=== PATIENT | male | born 2000 | race Caucasian/White ===

== ENCOUNTER 2024-04-05 18:53 | Inpatient (IN) ==
[2024-04-05 20:19] LABS: Basophils # (auto) 0.02 K/uL (0.00-0.20); Basophils % (auto) 0.2 %; Eosinophils # (auto) 0.16 K/uL (0.00-0.50); Eosinophils % (auto) 1.7 %; Hematocrit (blood only) 36.3 % (42.0-52.0); Hemoglobin 12.5 g/dl (14.0-18.0); Immature Granulocytes # (auto) 0.03 K/uL (0.01-0.20); Immature Granulocytes % (auto) 0.3 %; Lymphocytes # (auto) 1.26 K/uL (1.20-3.40); Lymphocytes % (auto) 13.1 %; Mean Corpuscular Hemoglobin 29.4 pg (25.0-34.0); Mean Corpuscular Hgb Conc 34.4 g/dL (32.0-36.0); Mean Corpuscular Volume 85.4 fL (80.0-100.0); Monocytes # (auto) 0.61 K/uL (0.11-0.59); Monocytes % (auto) 6.3 %; Neutrophils # (auto) 7.57 K/uL (1.40-6.50); Neutrophils % (auto) 78.4 %; Platelet Count 147 K/uL (130-400); RDW Coefficient of Variation 12.9 % (11.5-14.5); RDW Standard Deviation 39.3 fL (36.4-46.3); Red Blood Count 4.25 M/uL (4.70-6.10); White Blood Count 9.65 K/ul (4.8-10.8)
[2024-04-05 20:34] LABS: Alanine Aminotransferase 19 U/L (7-52); Albumin Globulin Ratio 1.6 (0.9-2); Albumin Level 4.1 gm/dl (3.4-5.0); Alkaline Phosphatase 65 U/L (34-104); Anion Gap 6 (3-11); Aspartate Aminotransferase 19 U/L (13-39); BUN Creatinine Ratio 11.8 (10-20); Bilirubin,Total 0.8 mg/dl (0.2-1.0); Blood Urea Nitrogen 11 mg/dl (6-23); Calcium 9.1 mg/dl (8.6-10.3); Carbon Dioxide 26 mmol/L (21-32); Chloride 102 mmol/L (98-107); Globulin 2.5 gm/dl (2.5-4.0); Glucose 171 mg/dl (70-99(Fasting)); Potassium 3.5 mmol/L (3.5-5.1); Sodium 134 mmol/L (136-145); Total Protein 6.6 gm/dl (6.0-8.3)
[2024-04-05 20:41] LABS: Acetaminophen < 3 ug/ml (10-30); Salicylate < 3.0 mg/dl (3.0-30)
[2024-04-05 20:48] LABS: Thyroid Stimulating Hormone 0.229 uIu/ml (0.300-4.500)
[2024-04-05 21:42] LABS: Appearance Urine Clear (Clear); Bilirubin Urine Negative (Negative); Blood Urine Negative (Negative); Color Urine Yellow; Glucose Urine UA Negative (Negative); Ketones Urine Negative (Negative); Leukocyte Esterase Urine Negative (Negative); Nitrite Urine Negative (Negative); Protein Urine Negative (Negative); Specific Gravity Urine 1.005 (1.000-1.030); Urobilinogen Urine Negative (Negative)
[2024-04-05 22:07] LABS: Amphetamines+Metham, Urine Pos (Neg); Barbiturates, Urine Neg (Neg); Benzodiazepine, Urine Neg (Neg); Cocaine, Urine Neg (Neg); Fentanyl, Urine Pos (Neg); MDMA (Ecstacy), Urine Neg (Neg); Marijuana, Urine Pos (Neg); Methadone, Urine Neg (Neg); Opiate, Urine Neg (Neg); Phencyclidine, Urine Neg (Neg)
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
[2024-04-06] MEDS ORDERED: ACETAMINOPHEN 325 MG TAB PO PRN (04:38)
[2024-04-06] MEDS ORDERED: POLYETHYLENE (MIRALAX) 17 GM PACK PO PRN (04:38)
[2024-04-06] MEDS: ENOXAPARIN INJ 40 MG/0.4 ML SYR SQ SCH (08:50)
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
--- NOTE | 2024-04-06 11:30 | Orthopedic Consultation ---
Date of Consultation April 06, 2024 Assessment & Plan (1) Bimalleolar ankle fracture: Patient has a bimalleolar displaced ankle fracture requiring surgical intervention. He is scheduled for an open reduction internal fixation of the right ankle tomorrow with Dr. Mixon. We will continue to plan to do his surgery tomorrow. Patient wishes to proceed. He will be made n.p.o. after midnight. Informed consent was obtained yesterday in the office and has been sent to ambulatory surgery. Continue ice and elevation. Maintain nonweightbearing on the right lower extremity. Okay to wiggle toes and move knee as tolerated. Call with any problems, questions or concerns. Patient understands and agrees with the plan. Will discuss findings with Dr. Mixon. History of Present Illness Reason for Consultation: right ankle fracture Attending Physician: Kristal Li MD History of Present Illness Patient presented to the emergency room with his grandmother yesterday due to homicidal and suicidal ideations. He was seen in our clinic as an outpatient for a displaced bimalleolar fracture of the left ankle surgical intervention was recommended. He was scheduled for an open reduction internal fixation of his right ankle with Dr. Mixon on April 07 2024. Informed consent was obtained. He agreed to proceed with surgery. He is currently being admitted via the hospitalist service and a psych consultation will be placed. He is going to remain in the hospital for the next few days. He denies any pain in the ankle today. He is kept the splint on. He denies putting any weight on the right ankle. He has been using crutches to assist with ambulation. Denies any numbness or tingling in the foot. Has been able to wiggle the toes. No new issues with the right ankle since his evaluation yesterday. Allergies Allergy/AdvReac Type Severity Reaction Status Date / Time No Known Allergies Allergy Verified 02/25/23 18:36 Home Medications Medication Instructions Recorded Confirmed Type Effexor 75 mg PO DAILY 04/05/24 04/05/24 History Patient History Medical History No pertinent family history ADHD Surgical History No pertinent past surgical history Family History Father No significant family history Mother No significant family history Social History Smoking Status: Current every day smoker Tobacco Type: Cigarettes Hx Alcohol Use: Yes Alcohol type: beer Hx Substance Use: Yes Preferred Language: Mauritian Communication Ability: Effective Sword Swallower Required: No Beliefs That Will Affect Care: None Current Living Situation: Family Current Living Situation Comment: Lives with grandparents. 1 dog Feels Safe at Home: Yes Gender Identity: Male Assistive Devices: None Physical Exam Musculoskeletal: Exam focused on his right lower extremity: His splint is intact. He has no significant edema of the toes. He is able to wiggle his toes freely. Nontender with palpation. Capillary fill is brisk. Distal sensation is grossly intact. Results & Data Vital Signs (Past 12 Hours) Vital Signs Temp Pulse Resp BP Pulse Ox O2 Del Method 04/06/24 10:00 36.8 C 97 H 18 123/68 96 Room Air 04/06/24 09:44 98 H 17 100/64 97 Room Air 04/06/24 05:24 82 17 119/71 97 Room Air 04/06/24 05:23 92 H 17 119/71 96 Room Air Laboratory Results 04/05/24 04/05/24 Range/Units 21:30 19:55 WBC 9.65 (4.8-10.8) K/ul RBC 4.25 L (4.70-6.10) M/uL Hgb 12.5 L (14.0-18.0) g/dl Hct 36.3 L (42.0-52.0) % MCV 85.4 (80.0-100.0) fL MCH 29.4 (25.0-34.0) pg MCHC 34.4 (32.0-36.0) g/dL RDW Std Deviation 39.3 (36.4-46.3) fL RDW Coeff of Aileen 12.9 (11.5-14.5) % Plt Count 147 (130-400) K/uL MPV 12.0 (9.4-12.4) fL Immature Gran % (Auto) 0.3 % Neut % (Auto) 78.4 % Lymph % (Auto) 13.1 % Tyrrell % (Auto) 6.3 % Eos % (Auto) 1.7 % Baso % (Auto) 0.2 % Neut # (Auto) 7.57 H (1.40-6.50) K/uL Lymph # (Auto) 1.26 (1.20-3.40) K/uL Tyrrell # (Auto) 0.61 H (0.11-0.59) K/uL Eos # (Auto) 0.16 (0.00-0.50) K/uL Baso # (Auto) 0.02 (0.00-0.20) K/uL Immature Gran # (Auto) 0.03 (0.01-0.20) K/uL Sodium 134 L (136-145) mmol/L Potassium 3.5 (3.5-5.1) mmol/L Chloride 102 (98-107) mmol/L Carbon Dioxide 26 (21-32) mmol/L Anion Gap 6 (3-11) BUN 11 (6-23) mg/dl Creatinine 0.93 (0.6-1.4) mg/dl Est Cr Clr Drug Dosing Not Reportable eGFR 119.06 BUN/Creatinine Ratio 11.8 (10-20) Glucose 171 H (70-99(Fasting)) mg/dl Calcium 9.1 (8.6-10.3) mg/dl Total Bilirubin 0.8 (0.2-1.0) mg/dl AST 19 (13-39) U/L ALT 19 (7-52) U/L Alkaline Phosphatase 65 (34-104) U/L Total Protein 6.6 (6.0-8.3) gm/dl Albumin 4.1 (3.4-5.0) gm/dl Globulin 2.5 (2.5-4.0) gm/dl Albumin/Globulin Ratio 1.6 (0.9-2) TSH 0.229 L (0.300-4.500) uIu/ml Free T4 1.10 (0.61-1.60) ng/dl Urine Color Yellow Urine Appearance Clear (Clear) Urine pH 7.0 (4.5-7.5) Ur Specific [place] 1.005 (1.000-1.030) Urine Protein Negative (Negative) Urine Glucose (UA) Negative (Negative) Urine Ketones Negative (Negative) Urine Blood Negative (Negative) Urine Nitrite Negative (Negative) Urine Bilirubin Negative (Negative) Urine Urobilinogen Negative (Negative) Ur Leukocyte Esterase Negative (Negative) Salicylates < 3.0 L (3.0-30) mg/dl Urine Opiates Screen Neg (Neg) Ur Methadone, Qual Neg (Neg) Fentanyl Comments Pending Drug Monitor Fentanyl Pending Fentanyl Confirmation Pending Drug Monitor Norfentanyl Pending Urine Fentanyl Screen Pos H (Neg) Ur Norfentanyl Confirm Pending Acetaminophen < 3 L (10-30) ug/ml Urine Barbiturates Neg (Neg) Ur Phencyclidine (PCP) Neg (Neg) U Amphetamines Confirm Pending U Amphetamin/Meth Scrn Pos H (Neg) U Methamphetamin Confrm Pending MDMA (Ecstasy) Screen Neg (Neg) U Benzodiazepines Scrn Neg (Neg) Ur Cocaine Metabolite Neg (Neg) U Marijuana (THC) Screen Pos H (Neg) U Marijuana THC Carboxy Pending Drug Screen Comment Pending Ethyl Alcohol mg/dL < 10.0 (<10.0) mg/dl Toxicology Comment Pending Drug Monitor Historic Res Pending SARS-CoV-2, RNA, NAAT NEGATIVE (NEGATIVE) (1) Bimalleolar ankle fracture Encounter type: initial encounter Fracture type: closed Laterality: right Qualified Code(s): S82.841A - Displaced bimalleolar fracture of right lower leg, initial encounter for closed fracture
[2024-04-06] MEDS ORDERED: KETOROLAC TROMETHAMINE 15 MG/ML VIAL IV PRN (12:14)
[2024-04-06] MEDS: oxyCODONE HCL IR 5 MG TAB (IMMEDIATE RELEASE) PO PRN (12:59)
--- NOTE | 2024-04-06 13:06 | XRay Report ---
XR ankle RT min 3V routine HISTORY: 24 years-old Male in splint acute pain of the right foot and ankle status post trauma COMPARISON: MRI right ankle 04/04/2024, radiographs 04/04/2024 TECHNIQUE: 3 views of the right ankle FINDINGS: Limited study secondary to overlying cast material. Acute distal fibular and posterior malleolar frac tures are redemonstrated with improved alignment compared to the prior radiographs. There is persiste nt widening of the medial clear space and distal tibiofibular syndesmoses. IMPRESSION: 1. Status post reduction and casting of the acute fracture dislocation of the ankle with improved ali gnment. 2. Mild persistent widening of the medial clear space and distal tibiofibular syndesmoses. ACT 112: Negative or not required by law. The above report was generated using voice recognition software. It may contain grammatical, syntax o r spelling errors. Electronically signed by: Elliot Mahoney M.D. 04/06/2024 1:04 PM
[2024-04-06] MEDS: ACETAMINOPHEN 500 MG TAB PO SCH (13:28)
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
--- NOTE | 2024-04-06 16:49 | XRay Report ---
XR foot RT min 3V routine CLINICAL HISTORY: in splint TECHNIQUE: 3 views of the right foot were obtained. Comparison: None available at the time of this dictation. FINDINGS: No fractures are present. A splint limits fine bony detail. The joint spaces are well preserved. No soft tissue abnormality is seen. IMPRESSION: No evidence of acute bony injury in the foot. Please see ankle radiograph for findings of ankle frac ture. ACT 112: Negative or not required by law. Electronically signed by: Jevon Cesar M.D. 04/06/2024 4:47 PM
[2024-04-06] MEDS: NICOTINE POLACRILEX 2 MG GUM MT PRN (21:03)
[2024-04-07] MEDS ORDERED: ROPIVACAINE 0.5% 5 MG/ML 30 ML VIAL ONE (06:40)
[2024-04-07 06:51] LABS: Chol HDL Ratio 1.7 (0-5)
[2024-04-07 07:16] LABS: Estimated Average Glucose 108 mg/dl; Hemoglobin A1C 5.4 % (4.5-5.6)
[2024-04-07] MEDS: ARIPiprazole 5 MG TAB PO SCH (08:42)
[2024-04-07] MEDS: LACTATED RINGER'S 1,000 ML IV SCH (09:10)
--- NOTE | 2024-04-07 09:14 | Anesthesiology Consultation ---
Date of Service April 07, 2024 Assessment & Plan ASA ASA2 Proposed Anesthesia Anesthesia Type: General Regional Regional Laterality: Right Site: Popliteal and Adductor Canal Risk / Benefits Reviewed With: PT / POA / Parent / Guardian, Accepts Plan and Informed Consent Obtained History Surgery Operation Date: 04/07/24 10:00 Proposed Procedures p Right Ankle Open Reduction Internal Fixation, Open Deltoid Ligament Repair with Internal Brace - Wil Mixon MD Height/Weight Height: 6 ft Weight: 73.1 kg Allergies Allergy/AdvReac Type Severity Reaction Status Date / Time No Known Allergies Allergy Verified 02/25/23 18:36 Medications Home Medications Medication Instructions Recorded Confirmed Last Taken Effexor 75 mg PO DAILY 04/05/24 04/05/24 Unknown Active Medications Generic Name Dose Route Start Last Admin Trade Name Freq PRN Reason Stop Dose Admin Acetaminophen 1,000 mg 04/06/24 12:15 04/07/24 03:49 Acetaminophen 500 Mg Tab PO 05/06/24 12:14 Not Given Q8H TERI Aripiprazole 2.5 mg 04/07/24 09:00 04/07/24 08:42 Aripiprazole 5 Mg Tab PO 05/07/24 08:59 2.5 mg QAM TERI Administration Enoxaparin Sodium 40 mg 04/06/24 09:00 04/06/24 08:50 Enoxaparin Inj 40 Mg/0.4 Ml Syr SQ 05/06/24 08:59 40 mg Q24H TERI Administration Nicotine Polacrilex 1 piece 04/06/24 20:54 04/06/24 21:03 Nicotine Polacrilex 2 Mg Gum MT 05/06/24 20:53 1 piece PRN PRN Administration smoking urge Oxycodone HCl 5 mg 04/06/24 12:15 04/07/24 08:41 Oxycodone Hcl Ir 5 Mg Tab (Immediate Release) PO 04/20/24 12:14 5 mg Q6H PRN Administration Severe Pain (Scale 7, 8, 9,10) NPO Date Last Intake of Fluids: 04/06/24 Time Last Intake of Fluids: 23:59 Date Last Intake of Solids: 04/06/24 Time Last Intake of Solids: 23:59 Past Medical History Medical History No pertinent family history ADHD Exercise / Class Metabolic Activity II 4-5 Yardwork/Stairs/Walk up hill Past Family History Family History Father No significant family history Mother No significant family history Past Surgical History Surgical History No pertinent past surgical history Past Anesthesia History No Hx of Anesthesia Complications and No Family Hx of Anesthesia Complications History of PONV No Hx of PONV and No Hx of Motion Sickness Social History Smoking Status: Current every day smoker tobacco type: cigarettes Hx Alcohol Use: Yes Alcohol type: beer alcohol intake frequency: a few times a month Hx Substance Use: Yes Physical Exam Vital Signs Last Vital Signs Temp 36.9 C 04/07/24 08:40 Pulse 79 04/07/24 08:40 Resp 18 04/07/24 08:40 BP 113/68 04/07/24 08:40 Pulse Ox 94 04/07/24 08:40 O2 Del Method Room Air 04/07/24 08:40 Constitutional no acute distress ENMT Mouth: no dentition abnormality Thyromental Distance: > or= 3.5 Finger Breadths Mallampati Class: II Neck normal visual inspection Respiratory normal respiratory effort; no respiratory distress Auscultation: lungs clear to auscultation bilaterally Cardiovascular Rate/Rhythm: regular rate and regular rhythm Heart Sounds: no murmur Musculoskeletal Spine: normal cervical ROM Psychiatric Orientation: alert and oriented x 3 Testing Laboratory Results 04/05/24 19:55 04/05/24 19:55 Hemoglobin A1c 5.4 % (4.5-5.6) 04/07/24 06:04 Urine Color Yellow 04/05/24 21:30 Urine Appearance Clear (Clear) 04/05/24 21:30 Urine pH 7.0 (4.5-7.5) 04/05/24 21:30 Ur Specific [place] 1.005 (1.000-1.030) 04/05/24 21:30 Urine Protein Negative (Negative) 04/05/24 21:30 Urine Glucose (UA) Negative (Negative) 04/05/24 21:30 Urine Ketones Negative (Negative) 04/05/24 21:30 Urine Nitrite Negative (Negative) 04/05/24 21:30 Ur Leukocyte Esterase Negative (Negative) 04/05/24 21:30 Day of Procedure Evaluation. Date of Surgery April 07, 2024 Height/Weight Height: 6 ft Weight: 73.1 kg Vital Signs Last Vital Signs Temp 36.9 C 04/07/24 08:40 Pulse 79 04/07/24 08:40 Resp 18 04/07/24 08:40 BP 113/68 04/07/24 08:40 Pulse Ox 94 04/07/24 08:40 O2 Del Method Room Air 04/07/24 08:40 Allergies Allergy/AdvReac Type Severity Reaction Status Date / Time No Known Allergies Allergy Verified 02/25/23 18:36 Medications Home Medications Medication Instructions Recorded Confirmed Last Taken Effexor 75 mg PO DAILY 04/05/24 04/05/24 Unknown Active Medications Generic Name Dose Route Start Last Admin Trade Name Freq PRN Reason Stop Dose Admin Acetaminophen 1,000 mg 04/06/24 12:15 04/07/24 03:49 Acetaminophen 500 Mg Tab PO 05/06/24 12:14 Not Given Q8H TERI Aripiprazole 2.5 mg 04/07/24 09:00 04/07/24 08:42 Aripiprazole 5 Mg Tab PO 05/07/24 08:59 2.5 mg QAM TERI Administration Enoxaparin Sodium 40 mg 04/06/24 09:00 04/06/24 08:50 Enoxaparin Inj 40 Mg/0.4 Ml Syr SQ 05/06/24 08:59 40 mg Q24H TERI Administration Nicotine Polacrilex 1 piece 04/06/24 20:54 04/06/24 21:03 Nicotine Polacrilex 2 Mg Gum MT 05/06/24 20:53 1 piece PRN PRN Administration smoking urge Oxycodone HCl 5 mg 04/06/24 12:15 04/07/24 08:41 Oxycodone Hcl Ir 5 Mg Tab (Immediate Release) PO 04/20/24 12:14 5 mg Q6H PRN Administration Severe Pain (Scale 7, 8, 9,10) Past Anesthesia History No Hx of Anesthesia Complications and No Family Hx of Anesthesia Complications History of PONV No Hx of PONV and No Hx of Motion Sickness NPO Date Last Intake of Fluids: 04/06/24 Time Last Intake of Fluids: 23:59 Date Last Intake of Solids: 04/06/24 Time Last Intake of Solids: 23:59 Home Medications Home Medications Medication Instructions Recorded Confirmed Last Taken Effexor 75 mg PO DAILY 04/05/24 04/05/24 Unknown Active Medications Generic Name Dose Route Start Last Admin Trade Name Freq PRN Reason Stop Dose Admin Acetaminophen 1,000 mg 04/06/24 12:15 04/07/24 03:49 Acetaminophen 500 Mg Tab PO 05/06/24 12:14 Not Given Q8H TERI Aripiprazole 2.5 mg 04/07/24 09:00 04/07/24 08:42 Aripiprazole 5 Mg Tab PO 05/07/24 08:59 2.5 mg QAM TERI Administration Enoxaparin Sodium 40 mg 04/06/24 09:00 04/06/24 08:50 Enoxaparin Inj 40 Mg/0.4 Ml Syr SQ 05/06/24 08:59 40 mg Q24H TERI Administration Nicotine Polacrilex 1 piece 04/06/24 20:54 04/06/24 21:03 Nicotine Polacrilex 2 Mg Gum MT 05/06/24 20:53 1 piece PRN PRN Administration smoking urge Oxycodone HCl 5 mg 04/06/24 12:15 04/07/24 08:41 Oxycodone Hcl Ir 5 Mg Tab (Immediate Release) PO 04/20/24 12:14 5 mg Q6H PRN Administration Severe Pain (Scale 7, 8, 9,10) Exercise / Class Metabolic Activity Metabolic Activity: II 4-5 Yardwork/Stairs/Walk up hill Physical Exam Constitutional: no acute distress Mouth: no dentition abnormality Thyromental Distance: > or= 3.5 Finger Breadths Mallampati Class: II Neck: + visual inspection normal Respiratory: + respiratory effort normal and + clear to auscultation bilaterally; no respiratory distress Cardiovascular: + regular rate and + regular rhythm; no murmur Musculoskeletal: no limited cervical ROM Psychiatric: + alert and + oriented x 3 ASA ASA2 Proposed Anesthesia Proposed Anesthesia: General Regional Regional Laterality: Right Site: Popliteal and Adductor Canal Risk / Benefits Reviewed With: PT / POA / Parent / Guardian, Accepts Plan and Informed Consent Obtained
[2024-04-07] MEDS ORDERED: ATROPINE SULFATE 0.1 MG/ML 10ML SYR IV PRN (09:15)
[2024-04-07] MEDS ORDERED: HYDROmorphone INJ 2 MG/ML SYR/VIAL IV PRN (09:15)
[2024-04-07] MEDS ORDERED: DROPERIDOL 5 MG/2 ML VIAL IV PRN (09:15)
[2024-04-07] MEDS ORDERED: ePHEDrine sulfate 50 MG/ML AMP IV PRN (09:15)
[2024-04-07] MEDS ORDERED: LIDOCAINE 2% MPF LOCAL 5 ML VIAL ONE (09:20)
[2024-04-07] MEDS: ceFAZolin 2000MG 2,000 MG/15 ML SYR IV ONE (10:57)
[2024-04-07 13:29] LABS: Basophils # (auto) 0.05 K/uL (0.00-0.20); Basophils % (auto) 0.6 %; Eosinophils # (auto) 0.29 K/uL (0.00-0.50); Eosinophils % (auto) 3.5 %; Hematocrit (blood only) 38.5 % (42.0-52.0); Immature Granulocytes # (auto) 0.01 K/uL (0.01-0.20); Immature Granulocytes % (auto) 0.1 %; Lymphocytes # (auto) 2.36 K/uL (1.20-3.40); Lymphocytes % (auto) 28.8 %; Mean Corpuscular Hemoglobin 29.1 pg (25.0-34.0); Mean Corpuscular Hgb Conc 33.8 g/dL (32.0-36.0); Mean Corpuscular Volume 86.3 fL (80.0-100.0); Mean Platelet Volume 12.5 fL (9.4-12.4); Monocytes # (auto) 0.76 K/uL (0.11-0.59); Monocytes % (auto) 9.3 %; Neutrophils # (auto) 4.72 K/uL (1.40-6.50); Neutrophils % (auto) 57.7 %; Platelet Count 182 K/uL (130-400); RDW Coefficient of Variation 12.7 % (11.5-14.5); RDW Standard Deviation 39.9 fL (36.4-46.3); Red Blood Count 4.46 M/uL (4.70-6.10); White Blood Count 8.19 K/ul (4.8-10.8)
[2024-04-07 13:36] LABS: Albumin Globulin Ratio 1.4 (0.9-2); Albumin Level 4.1 gm/dl (3.4-5.0); Bilirubin,Total 0.7 mg/dl (0.2-1.0); Calcium 9.4 mg/dl (8.6-10.3); Creatinine Clr Calc Pharmacy 139.3 ml/min; Potassium 4.3 mmol/L (3.5-5.1); Total Protein 7.1 gm/dl (6.0-8.3)
[2024-04-07] MEDS ORDERED: ONDANSETRON INJ 2 MG/ML 2 ML VIAL IV PRN (14:10)
[2024-04-07] MEDS ORDERED: diphenhydrAMINE 50 MG/ML VIAL IV PRN (14:10)
[2024-04-07] MEDS ORDERED: MAGNESIUM HYDROXIDE SUSP 30 ML UDC PO PRN (14:10)
[2024-04-07] MEDS ORDERED: bisacodyL 10 MG SUPP PR PRN (14:10)
[2024-04-07] MEDS ORDERED: ALUMINUM/MAGNESIUM SUSP 30 ML UDC PO PRN (14:10)
[2024-04-07] MEDS ORDERED: NALOXONE HCL 0.4 MG/1 ML VIAL/CARP IV PRN (14:10)
--- NOTE | 2024-04-07 14:12 | Operative Report ---
Post Operative Report Pre & Post Diagnosis Operation Date: 04/07/24 10:00 Pre-Op Diagnosis: Right Ankle Bimalleolar Fracture Post-Op Diagnosis: Right Ankle Bimalleolar Fracture I identified the patient and participated in the time-out.: Yes Procedure Operation Date: 04/07/24 10:00 Actual Procedures p Right Ankle: Open Reduction Internal Fixation with Open Deltoid Ligament Repair and Internal Brace, Repair of deep and superficial deltoid.(Right) - Wil Mixon MD Surgeon Wil Mixon MD Button Maker Abhishek Simpson DO, JOSE F Paige PA-C Estimated Blood Loss 25 Findings Consistent with Post-Op Diagnosis Specimens None Description of Procedure The patient underwent regional anesthesia in the preoperative area, he was brought to the operating room where he underwent sedation per anesthesia. The right lower extremity was then prepped and draped in usual sterile fashion. A surgical timeout was performed. The patient underwent a right ankle open reduction internal fixation, open deltoid ligament repair with internal brace, repair of deep and superficial deltoid ligament; please see Dr. Mixon's operative report for full details. I was present and assisted with patient positioning, limb positioning, soft tissue retraction, surgical incisions, fracture reduction, hardware placement, soft tissue repair, wound closure, postoperative dressing and splint placement. The patient was awakened and taken to the recovery room in stable condition. I attest to the content of the Intraoperative Record and any orders documented therein. Any exceptions are noted below.
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
--- NOTE | 2024-04-07 14:21 | Operative Report ---
Post Operative Report Pre & Post Diagnosis Operation Date: 04/07/24 10:00 Pre-Op Diagnosis: Right Ankle Bimalleolar Fracture Post-Op Diagnosis: Right Ankle Bimalleolar Fracture I identified the patient and participated in the time-out.: Yes Procedure Operation Date: 04/07/24 10:00 Actual Procedures p Right Ankle: Open Reduction Internal Fixation with Open Deltoid Ligament Repair and Internal Brace, Repair of deep and superficial deltoid.(Right) - Wil Mixon MD Surgeon Wil Mixon MD Waste Chopper Abhishek Simpson DO, DJ Royal, BEAU Estimated Blood Loss 25 Findings Consistent with Post-Op Diagnosis Specimens none Description of Procedure I was present during the entire case assisting with positioning, prepping, draping, wound retraction, wound closure, dressing and splint application. Fellow also present. I served as an extra set of hands during the case. Please see Dr. Mixon procedure note for specifics of the case. I attest to the content of the Intraoperative Record and any orders documented therein. Any exceptions are noted below.
--- NOTE | 2024-04-07 14:48 | Anesthesiology Progress Note ---
Date of Service April 07, 2024 Anesthesia Post Procedure Vital Signs Vital Signs: Temp Pulse Pulse Resp BP Pulse Ox O2 Del Method 04/07/24 14:40 37.1 C 87 16 121/72 96 Room Air 04/07/24 14:30 102 H 18 124/74 97 Room Air 04/07/24 14:20 99 H 12 118/64 100 Oxymask 04/07/24 14:10 36.5 C 100 H 16 134/67 100 Oxymask 04/07/24 09:00 36.7 C 88 20 121/73 95 Room Air 04/07/24 08:40 36.9 C 79 18 113/68 94 Room Air 04/07/24 08:30 Room Air 04/06/24 22:14 36.5 C 106 H 18 113/69 97 Room Air O2 Flow Rate 04/07/24 14:40 04/07/24 14:30 04/07/24 14:20 4 04/07/24 14:10 6 04/07/24 09:00 04/07/24 08:40 04/07/24 08:30 04/06/24 22:14 Pain Intensity Right Ankle: Pain Intensity: 6 Transfer of Care Handoff Completed per policy Notes Mental Status: alert / awake / arousable and participated in evaluation Nausea / Vomiting: adequately controlled Pain: adequately controlled Airway Patency, RR, SpO2: stable & adequate BP & HR: stable & adequate Hydration State: stable & adequate Anesthetic Complications: no major complications apparent and Pt Satisfied with anesthetic care
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
[2024-04-07] MEDS: KETOROLAC TROMETHAMINE 15 MG/ML VIAL IV SCH (17:40)
[2024-04-07] MEDS: SODIUM CHLORIDE 0.9% 1,000 ML IV SCH (17:41)
[2024-04-07] MEDS: ceFAZolin 2000MG 2,000 MG/15 ML SYR IV SCH (19:46)
[2024-04-07] MEDS: DOCUSATE SODIUM 100 MG CAP PO SCH (21:46)
[2024-04-07] MEDS: SENNA 8.6 MG TAB PO SCH (21:47)
[2024-04-07] MEDS ORDERED: ACETAMINOPHEN 500 MG TAB PO SCH (22:00)
[2024-04-08] MEDS: oxyCODONE HCL IR 5 MG TAB (IMMEDIATE RELEASE) PO PRN (01:47)
[2024-04-08] MEDS: VENLAFAXINE HCL XR 75 MG CAPXR PO SCH (08:42)
[2024-04-08] MEDS: dexAMETHasone 4 MG TAB PO SCH (08:42)
[2024-04-08] MEDS: MULTIVITAMIN TAB PO SCH (08:43)
--- NOTE | 2024-04-08 09:30 | Orthopedic Progress Note ---
Date of Service April 08, 2024 Assessment & Plan (1) Bimalleolar ankle fracture: Plan: PT/OT Lovenox for DVT prophylaxis 40 mg daily Will transition to aspirin 81 mg upon discharge Keep splint in place Nonweightbearing with the assistance of crutches Pain controlled p.o. medication Ice with easy wrap Patient may possibly need inpatient rehab. If he has a support system and transportation he may be able to do outpatient rehab. This will not begin until he is transition to a cam boot at his 2-week follow-up. We will need to schedule his follow-up for cam boot placement and staple removal Patient will be nonweightbearing for a total of 6 weeks With questions contact our clinic at [phone] (2) Tear of deltoid ligament of right ankle: Admission and Anticipated Discharge Date Admission Date: April 06, 2024 Subjective This 24-year-old male is day 1 status post Right ankle fracture open reduction internal fixation, repair of deep deltoid ligament with an internal brace, and repair of superficial deltoid ligament with associated anterior capsular tear with Dr. Mixon. Patient is resting in bed but easily aroused. He states that his block is still in effect and he really does not have any pain in the right lower extremity. He states that he splint is heavy and but fairly comfortable. States that he is able to move his toes and entire right lower extremity. He denies chest pain, shortness of breath, fever, chills, sweats, nausea, vomiting, diarrhea or difficulty voiding. Review of Systems Review of Systems: All systems reviewed & are unremarkable except as noted in Subjective Physical Exam Physical Exam: Right lower extremity: Splint that is clean dry intact left in place. Patient is able to detect light sensation to touch over the pads of his digits. He is able to actively move his digits. He is able to extend his knee to 0 degrees and flex beyond 120 degrees. He is able to perform active straight leg raise test. His quad strength is 5 out of 5. He is neurovascularly intact. Results & Data Vital Signs (Past 12 Hours) Vital Signs Temp Pulse Resp BP BP Pulse Ox O2 Del Method 04/08/24 08:18 87 122/75 95 Room Air 04/08/24 03:39 36.6 C 81 17 112/56 L 96 Room Air 04/07/24 21:53 36.6 C 104 H 20 107/67 97 Room Air Diagnostic Findings Laboratory Results WBC 8.19 K/ul (4.8-10.8) 04/07/24 09:42 RBC 4.46 M/uL (4.70-6.10) L 04/07/24 09:42 Hgb 13.0 g/dl (14.0-18.0) L 04/07/24 09:42 Hct 38.5 % (42.0-52.0) L 04/07/24 09:42 MCV 86.3 fL (80.0-100.0) 04/07/24 09:42 MCH 29.1 pg (25.0-34.0) 04/07/24 09:42 MCHC 33.8 g/dL (32.0-36.0) 04/07/24 09:42 RDW Std Deviation 39.9 fL (36.4-46.3) 04/07/24 09:42 RDW Coeff of Aileen 12.7 % (11.5-14.5) 04/07/24 09:42 Plt Count 182 K/uL (130-400) 04/07/24 09:42 MPV 12.5 fL (9.4-12.4) H 04/07/24 09:42 Immature Gran % (Auto) 0.1 % 04/07/24 09:42 Neut % (Auto) 57.7 % 04/07/24 09:42 Lymph % (Auto) 28.8 % 04/07/24 09:42 Lynn % (Auto) 9.3 % 04/07/24 09:42 Eos % (Auto) 3.5 % 04/07/24 09:42 Baso % (Auto) 0.6 % 04/07/24 09:42 Neut # (Auto) 4.72 K/uL (1.40-6.50) 04/07/24 09:42 Lymph # (Auto) 2.36 K/uL (1.20-3.40) 04/07/24 09:42 Lynn # (Auto) 0.76 K/uL (0.11-0.59) H 04/07/24 09:42 Eos # (Auto) 0.29 K/uL (0.00-0.50) 04/07/24 09:42 Baso # (Auto) 0.05 K/uL (0.00-0.20) 04/07/24 09:42 Immature Gran # (Auto) 0.01 K/uL (0.01-0.20) 04/07/24 09:42 Sodium 138 mmol/L (136-145) 04/07/24 09:42 Potassium 4.3 mmol/L (3.5-5.1) D 04/07/24 09:42 Chloride 105 mmol/L (98-107) 04/07/24 09:42 Carbon Dioxide 24 mmol/L (21-32) 04/07/24 09:42 Anion Gap 9 (3-11) 04/07/24 09:42 BUN 12 mg/dl (6-23) 04/07/24 09:42 Creatinine 0.86 mg/dl (0.6-1.4) 04/07/24 09:42 Est Cr Clr Drug Dosing 139.3 ml/min 04/07/24 09:42 eGFR 125.55 04/07/24 09:42 BUN/Creatinine Ratio 14.0 (10-20) 04/07/24 09:42 Glucose 112 mg/dl (70-99(Fasting)) H 04/07/24 09:42 Estimat Average Glucose 108 mg/dl 04/07/24 06:04 Hemoglobin A1c 5.4 % (4.5-5.6) 04/07/24 06:04 Calcium 9.4 mg/dl (8.6-10.3) 04/07/24 09:42 Total Bilirubin 0.7 mg/dl (0.2-1.0) 04/07/24 09:42 AST 16 U/L (13-39) 04/07/24 09:42 ALT 15 U/L (7-52) 04/07/24 09:42 Alkaline Phosphatase 59 U/L (34-104) 04/07/24 09:42 Total Protein 7.1 gm/dl (6.0-8.3) 04/07/24 09:42 Albumin 4.1 gm/dl (3.4-5.0) 04/07/24 09:42 Globulin 3.0 gm/dl (2.5-4.0) 04/07/24 09:42 Albumin/Globulin Ratio 1.4 (0.9-2) 04/07/24 09:42 Triglycerides 49 mg/dl (0-150) 04/07/24 06:04 Cholesterol 100 mg/dl (0-200) 04/07/24 06:04 LDL Cholesterol, Calc 31 mg/dl 04/07/24 06:04 VLDL Cholesterol, Calc 10 mg/dl (0-30) 04/07/24 06:04 HDL Cholesterol 59 mg/dl 04/07/24 06:04 Cholesterol/HDL Ratio 1.7 (0-5) 04/07/24 06:04 TSH 0.229 uIu/ml (0.300-4.500) L 04/05/24 19:55 Free T4 1.10 ng/dl (0.61-1.60) 04/05/24 19:55 Urine Color Yellow 04/05/24 21:30 Urine Appearance Clear (Clear) 04/05/24 21:30 Urine pH 7.0 (4.5-7.5) 04/05/24 21:30 Ur Specific Hanna 1.005 (1.000-1.030) 04/05/24 21:30 Urine Protein Negative (Negative) 04/05/24 21:30 Urine Glucose (UA) Negative (Negative) 04/05/24 21:30 Urine Ketones Negative (Negative) 04/05/24 21:30 Urine Blood Negative (Negative) 04/05/24 21:30 Urine Nitrite Negative (Negative) 04/05/24 21:30 Urine Bilirubin Negative (Negative) 04/05/24 21:30 Urine Urobilinogen Negative (Negative) 04/05/24 21:30 Ur Leukocyte Esterase Negative (Negative) 04/05/24 21:30 Salicylates < 3.0 mg/dl (3.0-30) L 04/05/24 19:55 Urine Opiates Screen Neg (Neg) 04/05/24 21:30 Ur Methadone, Qual Neg (Neg) 04/05/24 21:30 Urine Fentanyl Screen Pos (Neg) H 04/05/24 21:30 Acetaminophen < 3 ug/ml (10-30) L 04/05/24 19:55 Urine Barbiturates Neg (Neg) 04/05/24 21:30 Ur Phencyclidine (PCP) Neg (Neg) 04/05/24 21:30 U Amphetamin/Meth Scrn Pos (Neg) H 04/05/24 21:30 MDMA (Ecstasy) Screen Neg (Neg) 04/05/24 21:30 U Benzodiazepines Scrn Neg (Neg) 04/05/24 21:30 Ur Cocaine Metabolite Neg (Neg) 04/05/24 21:30 U Marijuana (THC) Screen Pos (Neg) H 04/05/24 21:30 Ethyl Alcohol mg/dL < 10.0 mg/dl (<10.0) 04/05/24 19:55 SARS-CoV-2, RNA, NAAT NEGATIVE (NEGATIVE) 04/05/24 19:55 Impressions Ankle X-Ray 04/06/24 12:07 XR ankle RT min 3V routine HISTORY: 24 years-old Male in splint acute pain of the right foot and ankle status post trauma COMPARISON: MRI right ankle 04/04/2024, radiographs 04/04/2024 TECHNIQUE: 3 views of the right ankle FINDINGS: Limited study secondary to overlying cast material. Acute distal fibular and posterior malleolar fractures are redemonstrated with improved alignment compared to the prior radiographs. There is persistent widening of the medial clear space and distal tibiofibular syndesmoses. IMPRESSION: 1. Status post reduction and casting of the acute fracture dislocation of the ankle with improved alignment. 2. Mild persistent widening of the medial clear space and distal tibiofibular syndesmoses. ACT 112: Negative or not required by law. The above report was generated using voice recognition software. It may contain grammatical, syntax or spelling errors. Electronically signed by: Elliot Mahoney M.D. 04/06/2024 1:04 PM Foot X-Ray 04/06/24 12:07 XR foot RT min 3V routine CLINICAL HISTORY: in splint TECHNIQUE: 3 views of the right foot were obtained. Comparison: None available at the time of this dictation. FINDINGS: No fractures are present. A splint limits fine bony detail. The joint spaces are well preserved. No soft tissue abnormality is seen. IMPRESSION: No evidence of acute bony injury in the foot. Please see ankle radiograph for findings of ankle fracture. ACT 112: Negative or not required by law. Electronically signed by: Jevon Cesar M.D. 04/06/2024 4:47 PM (1) Bimalleolar ankle fracture Encounter type: initial encounter Fracture type: closed Laterality: right Qualified Code(s): S82.841A - Displaced bimalleolar fracture of right lower leg, initial encounter for closed fracture
[2024-04-08 10:14] LABS: Hematocrit (blood only) 33.7 % (42.0-52.0); Hemoglobin 11.7 g/dl (14.0-18.0); Mean Corpuscular Hemoglobin 29.4 pg (25.0-34.0); Mean Corpuscular Hgb Conc 34.7 g/dL (32.0-36.0); Mean Corpuscular Volume 84.7 fL (80.0-100.0); Platelet Count 194 K/uL (130-400); RDW Coefficient of Variation 12.5 % (11.5-14.5); RDW Standard Deviation 38.3 fL (36.4-46.3); Red Blood Count 3.98 M/uL (4.70-6.10)
[2024-04-08 10:25] LABS: Albumin Globulin Ratio 1.4 (0.9-2); Albumin Level 3.8 gm/dl (3.4-5.0); BUN Creatinine Ratio 16.5 (10-20); Bilirubin,Total 0.3 mg/dl (0.2-1.0); Creatinine Clr Calc Pharmacy 140.9 ml/min; Globulin 2.7 gm/dl (2.5-4.0); Potassium 3.5 mmol/L (3.5-5.1); Total Protein 6.5 gm/dl (6.0-8.3)
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
[2024-04-09 15:08] LABS: Amphetamine Urine, Confirm 987 ng/mL (<250); Fentanyl, Urine NEGATIVE ng/mL (<0.5); Marijuana Quant, GCMS Urine 16 ng/mL (<5); Methamphetamine, Ur Confirm 783 ng/mL (<250); Norfentanyl, Urine 3.3 ng/mL (<0.5); medMATCH Fentanyl, Urine DNR; medMATCH Norfentanyl, Urine DNR
== END 2024-04-08 13:49 | disposition home or self-care (01) | DRG 493 ==
LOC: EDSEX → ED 18:53 → EDINP 04-06 01:11 → 3N 04-06 04:38